=== PATIENT | male | born 1945 | race Caucasian/White ===

== ENCOUNTER 2018-11-13 09:26 | Emergency (ER) | payer OTHER | END 2018-11-13 11:10 | disposition home or self-care (01) | LOC: E/R 09:26 | DX: E11.621 Type 2 diabetes mellitus with foot ulcer (principal); L97.511 Non-pressure chronic ulcer of other part of right foot limited to breakdown of skin; I10 Essential (primary) hypertension | CPT/HCPCS: 99283 ==